=== PATIENT | female | born 1985 | race Caucasian/White ===

== ENCOUNTER → 2017-12-08 16:51 | Outpatient (CLI) | payer OTHER, SELFPAY ==
[2017-12-08 17:51] LABS: Absolute Lymphocyte Count 2.62 X10^3/ul (0.83-4.51); Absolute Neutrophil Count 3.1 X10^3/uL (2.0-7.7); Basophil# 0.01 X10^3/uL; Basophil% 0.2 % (0-1); Eosinophil# 0.05 X10^3/uL; Eosinophils% 0.8 % (0-5); Hematocrit 39.9 % (37-47); Lymphocyte # 2.62 X10^3/ul (4.0); Lymphocyte % 42.4 % (19-41); Mean Corp Hgb Conc 32.6 g/gl (32-36); Mean Corpuscular Hgb 29.1 pg (27.0-32.0); Mean Corpuscular Volume 89.3 fL (81-99); Mean Platelet Vol. 10.2 fl (6.2-12.0); Monocyte% 6.5 % (0-10); Neutrophil # 3.09 X10^3/uL (2.7-7.7); Neutrophil % 49.9 % (47-70); Platelet Count 225 K/mm3 (150-450); RBC Distribution Width CV 12.3 % (11.6-14.6); Red Blood Count 4.47 M/mm3 (4.2-5.4); White Blood Count 6.2 K/mm3 (4.4-11.0)
[2017-12-08 17:54] LABS: POSITIVE COUNT NO; POSITIVE DIFFERENTIAL NO; POSITIVE MORPHOLOGY NO
[2017-12-08 18:04] LABS: T3 Total - Triiodothyronine 1.05 ng/mL (0.6-1.81)
[2017-12-08 18:05] LABS: Anion Gap 5 (5-15); BUN 15 mg/dL (7-18); BUN/Creat Ratio 21.6 RATIO (10-20); Calcium,Total 8.8 mg/dL (8.5-10.1); Chloride 106 mmol/L (98-107); EST Glomerular Filtration Rate 102 mL/min (>60); Est Glom Filt Rate - Afr Amer 124 mL/min (>60); Glucose 85 mg/dL (74-106); Potassium 3.6 mmol/L (3.5-5.1); Sodium Level 139 mmol/L (136-145); T4 Free Direct 0.96 ng/dL (0.76-1.46); Thyroid Stim Hormone (TSH) 0.89 uIU/mL (0.358-3.74)
== END ==
PROVIDERS: Visit Provider Family Medicine
DX: R00.2 Palpitations (principal); D64.9 Anemia, unspecified; R53.83 Other fatigue
CPT/HCPCS: 36415; 80048; 84439; 84443; 84480; 85025

== ENCOUNTER → 2017-12-22 09:47 | Outpatient (CLI) | payer OTHER, SELFPAY ==
--- NOTE | 2017-12-22 09:50 | ECHOD_ITS ---
Reason For Study: PALPITATIONS Procedure This was a 2D Doppler, Color Flow transthoracic echocardiogram. Exam performed in department. Left Ventricle Normal LV size. Left ventricular systolic function is normal. The estimated ejection fraction is 55 %. No evidence for diastolic dysfunction. No regional wall motion abnormalities noted. Right Ventricle Normal RV size. Normal systolic function. Atria Normal left atrium. Normal right atrium. Hypermobile atrial septum. Mitral Valve Normal mitral valve. Trivial eccentric mitral valve insufficiency. Tricuspid Valve Normal tricuspid valve. Trivial tricuspid valve insufficiency. Aortic Valve Normal aortic valve. Trisinus/trileaflet aortic valve. Pulmonic Valve Normal pulmonic valve. Great Vessels Normal aortic root. The pulmonary artery is normal size. Normal inferior vena cava. Pericardium/Pleural No pericardial effusion. MMode/2D Measurements & Calculations LVIDd: 4.2 cm IVSd: 0.62 cm Ao root diam: 3.1 cm LVIDs: 2.9 cm LVPWd: 0.63 cm LA dimension: 2.6 cm RVDd: 2.8 cm FS: 29.9 % LAV(MOD-bp): 37.3 ml LVAd ap4: 28.9 cm2 SV(MOD-sp4): 50.9 ml LAV(MOD-bp) Indexed: 21.0 ml/m2 EDV(MOD-sp4): 82.9 ml LAV(MOD-sp2): 36.2 ml EDV(sp4-el): 86.7 ml LAV(MOD-sp4): 34.1 ml LVAs ap4: 16.1 cm2 ESV(MOD-sp4): 32.1 ml ESV(sp4-el): 33.9 ml EF(MOD-sp4): 61.3 % EF(sp4-el): 60.9 % SV(sp4-el): 52.8 ml LA A4 area: 14.0 cm2 RA A4 area: 13.9 cm2 Time Measurements MV dec time: 0.20 sec Doppler Measurements & Calculations MV E max rainer: 88.0 cm/sec Lat Peak E' Rainer: 22.2 cm/sec Med Peak E' Rainer: 18.0 cm/sec MV A max rainer: 47.6 cm/sec E/E' lat: 4.0 E/E' med: 4.9 MV E/A: 1.9 Ao V2 max: 115.3 cm/sec LV V1 max: 91.3 cm/sec PA V2 max: 91.6 cm/sec Ao max P.3 mmHg LV V1 max P.3 mmHg TR max rainer: 212.3 cm/sec TR max P.0 mmHg Interpretation Summary Normal LV size. Left ventricular systolic function is normal. The estimated ejection fraction is 55 %. No evidence for diastolic dysfunction. Hypermobile atrial septum. Ordering Physician: Sedrick Roberts Referring Physician: MELO LEDEZMA Performed By: Olivia Bae, ASHLEY
== END ==
PROVIDERS: Family Provider Internal Medicine; PCP Family Medicine; Visit Provider Internal Medicine Cardiovascular Disease
DX: R00.2 Palpitations (principal)
CPT/HCPCS: 93225; 93226; 93306

== ENCOUNTER → 2019-04-09 09:21 | Outpatient (CLI) | payer OTHER, SELFPAY ==
[2019-02-16 14:44] VITALS: BMI 21.2
--- NOTE | 2019-04-09 09:26 | US_ITS ---
STUDY: ABDOMINAL ULTRASOUND -left UPPER QUADRANT REASON FOR VISIT: Female, 33 years old TECHNIQUE: Ultrasound evaluation of the left upper quadrant was performed with real-time and static cuba-scale imaging. TECHNICAL QUALITY: Adequate. COMPARISON: None. FINDINGS: Spleen: The spleen measures 10.2 cm. There is normal echogenicity of the spleen. There is no demonstrated mass lesion. Left Kidney: Normal size of the left kidney. The left kidney measures 15.1 cm. Normal renal cortex. The left cortex measures 2.7 cm. There is no demonstrated renal mass or cyst. There is no left hydronephrosis. US/Abdomen Limited IMPRESSION: Normal left upper quadrant ultrasound examination. Electronically Signed: Torrey George MD at 14:20 EDT Tel , Service support ,
== END ==
PROVIDERS: Family Provider Family Medicine; PCP Family Medicine; Referring Provider Family Medicine; Visit Provider Family Medicine
DX: R10.12 Left upper quadrant pain (principal)
CPT/HCPCS: 76705

== ENCOUNTER → 2019-04-19 10:47 | Outpatient (CLI) | payer OTHER, SELFPAY ==
[2019-04-11 13:51] VITALS: BMI 21.2
== END ==
PROVIDERS: Family Provider Family Medicine; PCP Family Medicine; Visit Provider Family Medicine
DX: R50.9 Fever, unspecified (principal)
CPT/HCPCS: 87086; 87088

== ENCOUNTER → 2019-05-12 14:52 | Outpatient (CLI) | payer OTHER, SELFPAY ==
[2019-04-11 13:51] VITALS: BMI 21.2
== END ==
PROVIDERS: Family Provider Family Medicine; PCP Family Medicine; Visit Provider Family Medicine
DX: R30.0 Dysuria (principal)
CPT/HCPCS: 87077; 87086; 87088; 87186

== ENCOUNTER → 2019-08-07 14:40 | Outpatient (CLI) | payer OTHER, SELFPAY ==
[2019-08-07 08:21] VITALS: BMI 21.2
[2019-08-08 14:49] LABS: Bacteria 0 SEEN /hpf (None Seen); Mucous, Urine 0 SEEN /hpf (<or=2+); Red Blood Cells-Urine 0 SEEN /hpf (0-5); Squamous Epithelial Cells - UA 0 SEEN /hpf (5-10)
[2019-08-08 14:52] LABS: Color, Urine Yellow (Yellow); Glucose, Dipstick Normal (Normal); Ketone-Dipstick Negative (Negative); Leukocyte Esterase-Dipstick 500 /ul (Negative); Nitrite-Dipstick Negative (Negative); Occult Blood-Urine 250 /ul (Negative); Protein-Dipstick 100 mg/dl (Negative); Specific Gravity, Urine 1.015 (1.002-1.030); Urine Bilirubin Dipstick Negative (Negative); Urine Clarity Cloudy (Clear); Urine Urobilinogen Normal (Normal)
[2019-08-08 14:57] LABS: White Blood Cells >100 SEEN /hpf (0-5)
== END ==
PROVIDERS: PCP Family Medicine; Referring Provider Physician Assistant Medical; Visit Provider Physician Assistant Medical
DX: R10.9 Unspecified abdominal pain (principal)
CPT/HCPCS: 81001; 87086; 87088

== ENCOUNTER → 2019-12-29 10:51 | Outpatient (CLI) | payer OTHER, SELFPAY ==
[2019-08-07 08:21] VITALS: BMI 21.2
--- NOTE | 2019-12-29 10:54 | US_ITS ---
STUDY: RENAL ULTRASOUND - COMPLETE REASON FOR EXAM: Female, 34 years old. Recurrent uti TECHNIQUE: Ultrasound evaluation of the kidneys was performed with real-time and static saucedo-scale imaging. COMPARISON: Comparison is made with prior examination dated April 09, 2019. FINDINGS: RIGHT KIDNEY: Normal location of the right kidney, which is normal in size. The right kidney measures 10.8 cm x 5.7 cm x 4.7 cm. There is a normal cortex of the right kidney. The renal cortex measures 1.0 cm. There is no right renal mass or cyst. There are no right renal calculi. There is mild hydronephrosis of the right kidney. DISTAL RIGHT URETER: There is non-visualization of the distal right ureter. There is no demonstrated right ureterovesical junction calculus. There is a visualized right ureteral jet. LEFT KIDNEY: with mild renal hypertrophy. The left kidney measures 14.4 cm x 6.2 cm x 7.5 cm. There is a normal cortex of the left kidney. The renal cortex measures 1.9 cm. There is no left renal mass or cyst. There are no left renal calculi. There is moderate hydronephrosis of the left kidney. DISTAL LEFT URETER: There is non-visualization of the distal left ureter. There is no demonstrated left ureterovesical junction calculus. There is a visualized left ureteral jet. BLADDER: The distended urinary bladder has a volume of 700 ml. The empty urinary bladder has a volume of 37 ml. There is a normal wall thickness of the distended urinary bladder. There is no demonstrated mass within the urinary bladder. There are no demonstrated bladder calculi. US/Kidney and Bladder IMPRESSION: Bilateral hydronephrosis left greater than right. Hypertrophy of the left kidney. Electronically Signed: Sumit Almaraz, at 13:44 EDT , Service support ,
== END ==
PROVIDERS: PCP Family Medicine; Referring Provider Urology; Visit Provider Urology
DX: N39.0 Urinary tract infection, site not specified (principal)
CPT/HCPCS: 76770

== ENCOUNTER → 2020-01-10 07:27 | Outpatient (CLI) | payer OTHER, SELFPAY ==
[2019-08-07 08:21] VITALS: BMI 21.2
--- NOTE | 2020-01-10 07:32 | CT_ITS ---
STUDY: CT ABDOMEN AND PELVIS WITH AND WITHOUT CONTRAST REASON FOR EXAM: Female, 34 years old. HYDRONEPHROSIS, RECURRENT UTI RADIATION DOSAGE (If Supplied By Facility): CTDIvol = ( 9.51 ) mGy, DLP = ( 1952.30 ) mGycm TECHNIQUE: Transaxial images were obtained from the dome of the diaphragm to the symphysis pubis without oral contrast. IV 100mL Isovue-300 was administered. Sagittal and coronal images were reconstructed. Individualized dose optimization techniques were used for this CT. COMPARISON: Ultrasound of the kidneys from 12/29/2019 FINDINGS: The visualized lung bases are unremarkable. The visualized portions of the heart are within normal limits. Normal liver. Normal gallbladder and extrahepatic biliary system. Normal spleen. Normal pancreas. Normal bilateral adrenal glands. Both kidneys show dilated pelves and calyces consistent with bilateral hydronephrosis. The left ureter is noted on the delayed images, containing contrast along its entirety without evidence of obstruction. The right ureter however is not visualized even on the delayed images past the UPJ. Normal visualized stomach. Normal small intestine. Retained stool noted throughout the entirety of the colon. The appendix is visualized and appears normal. Normal appendix seen on coronal recon image 44 Normal abdominal aorta. Normal inferior vena cava. Normal retroperitoneum. Normal urinary bladder. Normal-appearing uterus. Physiologic ovarian cysts are noted. There is a trace amount of free fluid in the cul-de-sac, likely physiologic. Normal abdominal wall. Normal osseous structures. CT/CT Abd/Pelvis W/WO Contrast IMPRESSION: Both kidneys demonstrate dilated renal pelves and calyces. However, the left ureter is not dilated and is filled with contrast along its entirety. No obstructive stone or mass lesion noted. The right ureter is not visualized. There is no clear asymmetric stone identified along the expected course of the right ureter. Retained stool noted throughout the entirety of the colon Trace free fluid in the cul-de-sac is likely physiologic Normal appendix visualized Electronically Signed: Robin Sanchez MD at 8:30 EDT , Service support ,
[2020-01-10 08:12] LABS: EST Glomerular Filtration Rate 86 mL/min (>60); Est Glom Filt Rate - Afr Amer 104 mL/min (>60)
== END ==
PROVIDERS: PCP Family Medicine; Referring Provider Urology; Visit Provider Urology
DX: N13.2 Hydronephrosis with renal and ureteral calculous obstruction (principal); N39.0 Urinary tract infection, site not specified
CPT/HCPCS: 74178; 82565; Q9967

== ENCOUNTER → 2020-02-07 13:13 | Outpatient (CLI) | payer OTHER, SELFPAY ==
[2019-08-07 08:21] VITALS: BMI 21.2
[2020-02-07 15:38] LABS: Erythrocyte Sedimentation Rate 5 mm/hr (0-20)
[2020-02-07 16:19] LABS: CRP < 2.90 mg/L (0.0-3.0); Rheumatoid Factor < 10.0 IU/mL (<15)
[2020-02-09 20:54] LABS: Anti-Nuclear Antibody Test Negative (.)
[2020-02-10 11:30] LABS: CCP IgG Antibodies 9 units (0-19)
== END ==
PROVIDERS: PCP Family Medicine; Visit Provider Family Medicine
DX: M25.50 Pain in unspecified joint (principal); N13.30 Unspecified hydronephrosis
CPT/HCPCS: 36415; 85652; 86038; 86140; 86200; 86431

== ENCOUNTER → 2020-03-09 15:07 | Outpatient (CLI) | payer OTHER, SELFPAY ==
[2020-02-17 11:07] VITALS: BMI 20.5
== END ==
PROVIDERS: Referring Provider Family Medicine; Visit Provider Family Medicine
DX: Z11.59 Encounter for screening for other viral diseases (principal)
CPT/HCPCS: 87635; U0003

== ENCOUNTER → 2020-03-23 13:06 | Outpatient (CLI) | payer OTHER, SELFPAY ==
[2020-02-17 11:07] VITALS: BMI 20.5
== END ==
PROVIDERS: Referring Provider Family Medicine; Visit Provider Family Medicine
DX: Z11.59 Encounter for screening for other viral diseases (principal)
CPT/HCPCS: 87635; U0003

== ENCOUNTER → 2020-04-06 12:15 | Outpatient (CLI) | payer OTHER, SELFPAY ==
[2020-02-17 11:07] VITALS: BMI 20.5
== END ==
PROVIDERS: Referring Provider Family Medicine; Visit Provider Family Medicine
DX: Z03.818 Encounter for observation for suspected exposure to other biological agents ruled out (principal)
CPT/HCPCS: 87635; U0003

== ENCOUNTER → 2020-04-20 10:45 | Outpatient (CLI) | payer OTHER, SELFPAY ==
[2020-02-17 11:07] VITALS: BMI 20.5
== END ==
PROVIDERS: Referring Provider Family Medicine; Visit Provider Family Medicine
DX: Z03.818 Encounter for observation for suspected exposure to other biological agents ruled out (principal)
CPT/HCPCS: 87635; U0003

== ENCOUNTER → 2020-05-04 13:20 | Outpatient (CLI) | payer OTHER, SELFPAY ==
[2020-02-17 11:07] VITALS: BMI 20.5
== END ==
PROVIDERS: PCP Family Medicine; Referring Provider Family Medicine; Visit Provider Family Medicine
DX: Z03.818 Encounter for observation for suspected exposure to other biological agents ruled out (principal)
CPT/HCPCS: 87635; U0003

== ENCOUNTER 2020-05-09 08:32 | Day surgery (SDC) | payer OTHER, SELFPAY ==
[2020-02-17 11:07] VITALS: BMI 20.5
[2020-05-09 08:52] VITALS: BP 107/57; PULSE 84; RESP 16; TEMP 36.7; O2SAT 100; BMI 20.6
[2020-05-09] MEDS: Lactated Ringers 1,000 ML 100 ML IV ×2 (08:52→10:18)
[2020-05-09 08:59] LABS: Internal QC Validated? YES +Cl - CLEAR BKGD; Pregnancy, Urine Negative Negative
[2020-05-09] MEDS: Cefazolin 2 GM in 0.9% Normal Saline 100 ML IV (09:13)
--- NOTE | 2020-05-09 09:13 | PCM.OPRPT ---
Problem List (1) Bilateral hydronephrosis Status: Acute Report of Operation Date of Procedure: 05/09/20 Pre-Operative Diagnosis: bilateral hydronephrosis Post-Operative Diagnosis: same Surgery/Procedure Performed:: cystoscopy with bilateral retrograde pyelograms, bilateral attempted ureteroscopy Type of Anesthesia:: General Description of Procedure: The patient is a 34-year-old female who came to me initially for urinary tract infections. She has also had intermittent left sided flank pain. On evaluation she was found to have hydronephrosis. She has undergone evaluation with CT scan, renal Lasix scan, urodynamics and now presents for retrograde pyelograms and ureteroscopy for further evaluation. Informed consent was obtained including a discussion of COVID-19 risks. Patient was taken to the operating room and placed on the operating room table. Anesthesia monitored the head, neck, airway, IV access and vital signs throughout the case. Once anesthesia was appropriately administered the patient was placed into dorsal lithotomy position and was prepped and draped in usual sterile fashion. At this time a cystourethroscopy was performed revealing small ureteral orifices but no other abnormalities. An 8 Albanian cone-tip catheter was used to gently cannulate first the right ureteral orifice and a retrograde pyelogram was performed under fluoroscopic visualization. The ureter caliber throughout was normal with no evidence of obstruction or filling defect. There is a dilation of the renal pelvis with evidence of a UPJ obstruction. A 0.035 Glidewire was then passed an attempt was made at passing a flexible ureteroscope. The scope would not pass through the ureteral orifice easily and I made the decision not to dilate the orifice. The same process was repeated on the patient's left side also revealing a normal caliber to the ureter with evidence of a UPJ obstruction and hydronephrosis with some blunted calyces. The ureteroscope did not easily pass in the portion of the procedure was then aborted. The patient's bladder was emptied and the case was terminated. She was awakened and taken to the recovery room in good condition. Grafts/Implants Used: none - Complications none - Admit VTE Documentation VTE Present on Admission: Yes VTE Mechan Device Prophylaxis: SCD's VTE Pharm Prophylaxis ordered?: No Reason prophylaxis not ordered:: Treatment Not Indicated
--- NOTE | 2020-05-09 09:15 | PCM.DC.URO ---
Discharge Diet: No Restrictions Discharge Activity: Return to Normal Activity, May not drive while taking narcotic pain medications. May resume sexual activity in: No Restrictions Call your doctor if you observe: Fever of 101 or Higher, Inability to urinate, Inability to have a bowel movement Allergies/Adverse Reactions: Allergies sulfamethoxazole [From Bactrim] Allergy (Verified 05/09/20 08:56) Unknown trimethoprim [From Bactrim] Allergy (Verified 05/09/20 08:56) Unknown Medications to take at Discharge Ascorbic Acid [Vitamin C] 1,000 mg PO DAILY 04/28/20 D-Mannose 3 cap PO DAILY 04/28/20 Cephalexin [Keflex] 500 mg PO Q12 3 Days #6 cap 05/09/20 Fexofenadine/Pseudoephedrine [Deepthi-D 24 Hour Tablet] 1 ea PO 05/09/20 Oxycodone HCl/Acetaminophen [Percocet 5/325] 1 tablet PO Q8H PRN PRN 7 Days #10 tablet 05/09/20 The following prescriptions were given: Cephalexin [Keflex] 500 mg PO Q12 3 Days #6 cap Transmission Status: Pending to [facility] Oxycodone HCl/Acetaminophen [Percocet 5/325] 1 tablet PO Q8H PRN PRN 7 Days #10 tablet PRN Reason: Pain Transmission Status: Sent to [facility] Primary Care Physician: Edith Leon DO [Primary Care Provider] - Test Results: Test results from this visit will be discussed in further detail at your follow-up appointment, if applicable. Please Follow Up With: Jaja Leung MD When: call office for appt Proposed Discharge Date: 05/09/20
[2020-05-09 10:08] VITALS: BP 105/75; PULSE 69; RESP 16; TEMP 36.1; O2SAT 100
[2020-05-09 10:15] VITALS: BP 100/71; BP 105/75; PULSE 69; RESP 16; O2SAT 100
[2020-05-09 10:30] VITALS: BP 105/75; BP 111/78; PULSE 72; RESP 16; O2SAT 100
[2020-05-09 10:45] VITALS: BP 105/75; BP 111/84; PULSE 70; RESP 16; TEMP 36.1; O2SAT 100
[2020-05-09 11:43] VITALS: BP 104/71; BP 105/75; PULSE 69; RESP 16; TEMP 36.7; O2SAT 100
== END 2020-05-09 11:59 | disposition home or self-care (01) ==
LOC: SDC 08:38 → AC 08:38
PROVIDERS: PCP Family Medicine; Referring Provider Urology; Visit Provider Urology
PROC: 0TJ98ZZ Inspection of Ureter, Via Natural or Artificial Opening Endoscopic (ICD-10-PCS; CPT 52352; principal; 2020-05-09 09:45)
DX: N13.30 Unspecified hydronephrosis (principal)
CPT/HCPCS: 00910; 52005; 76000; 81025; J7120; J2405

== ENCOUNTER → 2020-07-13 11:21 | Outpatient (CLI) | payer OTHER, SELFPAY ==
[2020-07-13 15:04] LABS: Absolute Lymphocyte Count 2.32 X10^3/uL (0.83-4.51); Absolute Neutrophil Count 2.9 X10^3/uL (2.0-7.7); Basophil# 0.01 X10^3/uL; Basophil% 0.2 % (0-1); Eosinophil# 0.05 X10^3/uL; Eosinophils% 0.9 % (0-5); Hematocrit 41.9 % (37-47); Hemoglobin 13.7 g/dL (12.0-15.0); Lymphocyte # 2.32 X10^3/ul (4.0); Lymphocyte % 40.4 % (19-41); Mean Corp Hgb Conc 32.7 g/dL (32-36); Mean Corpuscular Hgb 29.2 pg (27.0-32.0); Mean Corpuscular Volume 89.3 fL (81-99); Monocyte# 0.42 X10^3/uL; Monocyte% 7.3 % (0-10); NRBC Flagged by Analyzer 0 % (0-5); Neutrophil # 2.94 X10^3/uL (2.7-7.7); Neutrophil % 51.2 % (47-70); Platelet Count 246 K/mm3 (150-450); RBC Distribution Width CV 12.1 % (11.6-14.6); RBC Distribution Width SD 38.9 fl (35.1-43.9); Red Blood Count 4.69 M/mm3 (4.2-5.4); White Blood Count 5.7 K/mm3 (4.4-11.0)
[2020-07-13 15:20] LABS: Vitamin D,25 Hydroxy 29.7 ng/mL
== END ==
PROVIDERS: PCP Family Medicine; Visit Provider Family Medicine
DX: E55.9 Vitamin D deficiency, unspecified (principal); R59.1 Generalized enlarged lymph nodes
CPT/HCPCS: 36415; 82306; 85025

== ENCOUNTER → 2020-07-19 08:02 | Outpatient (CLI) | payer OTHER, SELFPAY ==
--- NOTE | 2020-07-19 08:14 | US_ITS ---
STUDY: SUPERFICIAL ULTRASOUND - LEFT AXILLARY REGION. REASON FOR EXAM: Female, 35 years old. Lt axilla lymphadenopathy TECHNIQUE: A superficial ultrasound was performed with real-time and static cuba-scale imaging. COMPARISON: None. FINDINGS: Multiple benign appearing lymph nodes are seen in the left axillary region. The largest lymph node measures 2.4 cm x 1.3 cm x 0.7 cm. US/Ext Non Vasc Limited/Soft Tiss IMPRESSION: Left axillary lymph nodes. Electronically Signed: Sumit Almaraz MD at 12:13 EST , Service support ,
== END ==
PROVIDERS: PCP Family Medicine; Referring Provider Family Medicine; Visit Provider Family Medicine
DX: R59.1 Generalized enlarged lymph nodes (principal)
CPT/HCPCS: 76882

== ENCOUNTER → 2022-04-03 | Outpatient (CLI) | payer OTHER, SELFPAY ==
--- NOTE | 2022-04-03 16:56 | US_ITS ---
STUDY: RENAL ULTRASOUND - COMPLETE REASON FOR EXAM: Female, 36 years old. HYDRONEPHROSIS TECHNIQUE: Ultrasound evaluation of the kidneys was performed with real-time and static saucedo-scale imaging. COMPARISON: December 29, 2019 FINDINGS: RIGHT KIDNEY: Normal location of the right kidney, which is normal in size. The right kidney measures 10.7 cm. There is a normal cortex of the right kidney. The renal cortex measures 1.0 cm. There is no right renal mass or cyst. There are no right renal calculi. There is an extra-renal pelvis of the right kidney. There is no distention of the renal calyces. DISTAL RIGHT URETER: There is non-visualization of the distal right ureter. There is no demonstrated right ureterovesical junction calculus. There is a visualized right ureteral jet. LEFT KIDNEY: Normal location of the left kidney, which is increased in size. The left kidney measures 14.5 cm. There is a normal cortex of the left kidney. The renal cortex measures 1.8 cm. There is no left renal mass or cyst. There are no left renal calculi. There is moderate hydronephrosis of the left kidney. DISTAL LEFT URETER: There is non-visualization of the distal left ureter. There is no demonstrated left ureterovesical junction calculus. There is a visualized left ureteral jet. BLADDER: The distended urinary bladder has a volume of 287 ml. There is a normal wall thickness of the distended urinary bladder. There is no demonstrated mass within the urinary bladder. There are no demonstrated bladder calculi. US/Kidney and Bladder IMPRESSION: Left hydronephrosis. Extrarenal pelvis on the right. Electronically Signed: Danny Graham MD at 20:51 EDT ,
[2022-04-03 17:27] LABS: Anion Gap 4 (5-15); BUN 16 mg/dL (7-18); BUN/Creat Ratio 24.1 RATIO (10-20); Calcium,Total 8.5 mg/dL (8.5-10.1); Chloride 106 mmol/L (98-107); Creatinine, Serum 0.66 mg/dL (0.55-1.02); EST Glomerular Filtration Rate 105 mL/min (>60); Est Glom Filt Rate - Afr Amer 128 mL/min (>60); Glucose 90 mg/dL (74-106); Potassium 3.9 mmol/L (3.5-5.1); Sodium Level 139 mmol/L (136-145)
== END | disposition home or self-care (01) ==
PROVIDERS: PCP Family Medicine; Referring Provider Urology; Visit Provider Urology
DX: N13.30 Unspecified hydronephrosis (principal)
CPT/HCPCS: 36415; 76770; 80048

== ENCOUNTER → 2023-03-24 | Outpatient (CLI) | payer OTHER, SELFPAY ==
--- NOTE | 2023-03-24 13:28 | US_ITS ---
INDICATION: UTI''S, HYDRONEPHROSIS EXAMINATION: Ultrasound US Kidney(s) complete (eg, kidneys and bladder) TECHNIQUE: Evangelista scale and color doppler images were obtained of the kidneys. COMPARISON: Prior study dated: 04/03/2022 FINDINGS: RIGHT KIDNEY: 10.5 x 5.6 x 3.5 cm. The renal cortex measures 0.6 cm. There again is dilated extrarenal pelvis. Mild prominence of the calyces. No shadowing calculus, focal lesion or perinephric collection is demonstrated. Ureteral jet is not visualized. LEFT KIDNEY: 150.2 x 4.6 x 7.5 cm. The renal cortex measures 1.5 cm. There is moderate to severe left hydronephrosis essentially unchanged. No shadowing calculus, focal lesion or perinephric collection is demonstrated. Ureteral jet is visualized. URINARY BLADDER: The calculated prevoid bladder volume is 290 cc US/Kidney and Bladder IMPRESSION: Moderate bilateral hydronephrosis worse on the left side. Electronically Signed: Jett Mata MD at 13:01 EDT ,
[2023-03-24 14:09] LABS: Anion Gap 3 (5-15); BUN 15 mg/dL (7-18); BUN/Creat Ratio 17.6 RATIO (10-20); Calcium,Total 8.4 mg/dL (8.5-10.1); Chloride 107 mmol/L (98-107); Creatinine, Serum 0.85 mg/dL (0.55-1.02); EST Glomerular Filtration Rate 79 mL/min (>60); Est Glom Filt Rate - Afr Amer 95 mL/min (>60); Glucose 73 mg/dL (74-106); Potassium 3.8 mmol/L (3.5-5.1); Sodium Level 139 mmol/L (136-145)
== END | disposition home or self-care (01) ==
PROVIDERS: PCP Family Medicine; Referring Provider Urology; Visit Provider Urology
DX: N39.0 Urinary tract infection, site not specified (principal); N13.39 Other hydronephrosis
CPT/HCPCS: 36415; 76770; 80048

== ENCOUNTER → 2024-01-21 | Outpatient (CLI) | payer OTHER, SELFPAY ==
--- NOTE | 2024-01-21 13:01 | BI_ITS ---
MAMMOGRAPHY - BILATERAL SCREENING REASON FOR EXAM: Female, 38 years old. Routine annual screening examination. PERTINENT HISTORY: Mother with breast cancer. Grandmother with breast cancer. TECHNIQUE: Digital bilateral breast afsaneh (3D mammographic acquisition) in the CC and MLO projections. 2-D mediolateral oblique (MLO) and craniocaudad (CC) views of both breasts were obtained. CAD: Full Field Digital Mammography with Computer Added Detection was performed. COMPARISON: Comparison is made with prior outside examination dated November 11, 2022. FINDINGS: Breast Composition: The breasts are extremely dense, which lowers the sensitivity of mammography. There are no dominant masses or suspicious calcifications. No other significant abnormalities are identified. There has been no significant change since the prior study. BI/SCRN MAMM (CAD)W/AFSANEH BILAT IMPRESSION: Stable bilateral screening mammogram. Yearly follow-up mammogram recommended. (A) ASSESSMENT CATEGORY: BIRADS Category 1: Negative. A letter regarding these results will be sent to the patient by the facility within 30 days. Approximately 10% of breast cancers are not detected by mammography. A normal mammogram should not delay biopsy of a clinically suspicious abnormality. [id number] Electronically Signed: Sumit Almaraz MD at 13:56 EDT ,
--- NOTE | 2024-01-21 13:40 | MRI_ITS ---
STUDY: BILATERAL BREAST MR WITHOUT AND WITH CONTRAST REASON FOR EXAM: Female, 38 years old. Family history of breast cancer with lifetime risk estimated at 24%. TECHNIQUE: Multi-sequence multi-echo imaging of both breasts was performed with a dedicated breast coil. T1-weighted and T2-weighted images were performed before the administration of contrast. T1-weighted images were also performed after the intravenous administration of 13 cc of Clariscan contrast. COMPARISON: Prior mammograms dated January 21, 2024 and November 11, 2022 FINDINGS: RIGHT BREAST: Heterogeneously dense fibroglandular tissue with minimal background enhancement. No abnormal enhancing masses or areas of non-mass enhancement in the right breast. LEFT BREAST: Heterogeneously dense fibroglandular tissue with minimal background enhancement. No abnormal enhancing masses or areas of non-mass enhancement in the right breast. No enlarged or abnormal lymph nodes. No abnormality in the visualized regions of the chest or liver. MRI/Breast Bilateral W/O and W IMPRESSION: No abnormality on the breast MRI with contrast. Ultimately a breast MRI with contrast and mammography would be appropriate, considering the patient''s lifetime risk of breast cancer. CATEGORY: BIRADS Category 2: Benign. A letter regarding these results will be sent to the patient by the facility within 30 days. Electronically Signed: Nitish Polanco MD at 9:18 EDT ,
== END | disposition home or self-care (01) ==
LOC: MRI 12:53
PROVIDERS: PCP Family Medicine; Referring Provider Obstetrics & Gynecology Gynecology; Visit Provider Obstetrics & Gynecology Gynecology
DX: Z12.31 Encounter for screening mammogram for malignant neoplasm of breast (principal); Z80.3 Family history of malignant neoplasm of breast
CPT/HCPCS: 77049; 77063; 77067; A9575; A4216; C8908

== ENCOUNTER → 2024-03-23 | Outpatient (CLI) | payer OTHER, SELFPAY ==
--- NOTE | 2024-03-23 15:29 | US_ITS ---
INDICATION: UTI, hx of hydro EXAMINATION: Ultrasound US Kidney(s) complete (eg, kidneys and bladder) TECHNIQUE: Evangelista scale and color doppler images were obtained of the kidneys. COMPARISON: March 24, 2023 FINDINGS: RIGHT KIDNEY: The right kidney measures 11.0 cm in length. There is no hydronephrosis. There is a 3.9 x 2.1 x 3.1 cm simple appearing cyst arising from the right kidney. No shadowing calculus or perinephric collection is demonstrated. LEFT KIDNEY: The left kidney measures 15 cm in length. There is grossly stable moderate hydronephrosis. No shadowing calculus, focal lesion or perinephric collection is demonstrated. URINARY BLADDER: The urinary bladder volume measures 432.9 mL. No discrete masses are visualized. No filling defects are seen. US/Kidney and Bladder IMPRESSION: Stable left-sided hydronephrosis. 3.9 x 2.1 x 3.1 cm right renal cyst. Electronically Signed: Alison Trejo MD at 8:20 EDT ,
== END | disposition home or self-care (01) ==
LOC: US 15:26
PROVIDERS: PCP Family Medicine; Referring Provider Urology; Visit Provider Urology
DX: N39.0 Urinary tract infection, site not specified (principal)
CPT/HCPCS: 76770

== ENCOUNTER → 2024-03-24 | Outpatient (CLI) | payer OTHER, SELFPAY ==
[2024-03-24 12:19] LABS: Anion Gap 4 (5-15); BUN 15 mg/dL (7-18); BUN/Creat Ratio 18.3 RATIO (10-20); Calcium,Total 9.1 mg/dL (8.5-10.1); Chloride 106 mmol/L (98-107); Creatinine, Serum 0.82 mg/dL (0.55-1.02); EST Glomerular Filtration Rate 82 mL/min (>60); Est Glom Filt Rate - Afr Amer 99 mL/min (>60); Glucose 88 mg/dL (74-106); Potassium 4.1 mmol/L (3.5-5.1); Sodium Level 138 mmol/L (136-145)
== END | disposition home or self-care (01) ==
LOC: MTLAB 10:18
PROVIDERS: PCP Family Medicine; Referring Provider Urology; Visit Provider Urology
DX: N13.30 Unspecified hydronephrosis (principal)
CPT/HCPCS: 36415; 80048

== ENCOUNTER → 2025-01-24 | Outpatient (CLI) | payer OTHER, SELFPAY ==
[2025-01-24 13:20] LABS: Hematocrit 38.9 % (37-47); Hemoglobin 12.6 g/dL (12.0-15.0); Immature Granulocytes Count 0.010 X10^3/uL (0.0-0.0); Mean Corp Hgb Conc 32.4 g/dL (32-36); Mean Corpuscular Volume 89.6 fL (81-99); Mean Platelet Vol. 10.1 fl (6.2-12.0); NRBC Flagged by Analyzer 0 % (0-5); Platelet Count 246 K/mm3 (150-450); RBC Distribution Width CV 12.3 % (11.6-14.6); RBC Distribution Width SD 40.5 fl (35.1-43.9); Red Blood Count 4.34 M/mm3 (4.2-5.4); White Blood Count 4.3 K/mm3 (4.4-11.0)
[2025-01-24 13:51] LABS: AST(SGOT) 17 U/L (<=31); Alanine Aminotransfer ALT/SGPT 15 U/L (<=34); Albumin, Serum 4.2 g/dL (3.5-5.0); Alkaline Phosphatase 46 U/L (35-104); Anion Gap 11 (5-15); BUN 14 mg/dL (4-19); BUN/Creat Ratio 19.3 RATIO (10-20); Calcium,Total 8.9 mg/dL (7.6-11.0); Carbon Dioxide 23.1 mmol/L (21.0-32.0); Chloride 105 mmol/L (98-108); Cholesterol 181 mg/dL (<=200); Globulin 2.6 g/dL (2.2-4.2); Glucose 86 mg/dL (70-99); Low Density Lipoprotein Calc. 90 mg/dL; Potassium 3.9 mmol/L (3.3-5.1); Triglycerides 33 mg/dL; Very Low Density Lipoprotein 7 mg/dL (5-40); Vitamin D,25 Hydroxy 41.7 ng/mL (30-100); cholesterol:hdl ratio screen 2.14
== END | disposition home or self-care (01) ==
LOC: BFHLAB 09:04
PROVIDERS: PCP Family Medicine; Visit Provider Family Medicine
DX: E55.9 Vitamin D deficiency, unspecified (principal); Z51.81 Encounter for therapeutic drug level monitoring; Z13.220 Encounter for screening for lipoid disorders
CPT/HCPCS: 36415; 80053; 80061; 82306; 85025

== ENCOUNTER → 2025-02-07 | Outpatient (CLI) | payer OTHER, SELFPAY ==
--- NOTE | 2025-02-07 10:21 | MRI_ITS ---
PROCEDURE: BREAST BILATERAL W/O AND W 02/07/2025 REASON FOR EXAM: BREAST CANCER SCREENING, HIGH RISK Patient's mother was diagnosed with breast cancer. TECHNIQUE: BREAST BILATERAL W/O AND W CONTRAST: 13 mL Clariscan COMPARISON: Breast MRI dated 01/21/2024 and mammogram dated 01/21/2024 FINDINGS: TISSUE DENSITY: The breasts are extremely dense.. Background Parenchymal Enhancement: Minimal RIGHT Breast: No suspicious mass or non-mass enhancement. LEFT Breast: No suspicious mass or non-mass enhancement. Other Findings: No suspicious axillary or internal mammary lymph nodes. Visualized portions of the thoracic and abdominal viscera are unremarkable. MRI/Breast Bilateral W/O and W IMPRESSION: OVERALL FINAL ASSESSMENT BI-RADS 1: NEGATIVE RECOMMENDATION: Routine annual follow-up in 1 Year. Patient should also return at this time for bilateral screening mammogram. MRI does not replace mammography for screening for breast cancer. Reading Location: [id number]
== END | disposition home or self-care (01) ==
LOC: MRI 10:19
PROVIDERS: PCP Family Medicine; Referring Provider Obstetrics & Gynecology Gynecology; Visit Provider Obstetrics & Gynecology Gynecology
DX: Z12.31 Encounter for screening mammogram for malignant neoplasm of breast (principal); Z80.3 Family history of malignant neoplasm of breast
CPT/HCPCS: 77049; A9575; A4216; C8908